=== PATIENT | female | born 1985 | race Caucasian/White ===

== ENCOUNTER 2017-06-22 08:37 | Emergency (ER) | payer BC ==
[~2017-06-22] VITALS: Ht 162.6 cm; Wt 60.3 kg
[2017-06-22] MEDS ORDERED: KETOROLAC TROMETHAMINE 30 MG INJ IM ONE (09:45)
[2017-06-22] MEDS ORDERED: KETOROLAC TROMETHAMINE 30 MG INJ ONE (09:58)
--- NOTE | 2017-06-22 10:04 | NUR ---
Patient discharged to home in stable conditon. Written and verbal after care instructions given. Patient verbalizes understanding of instructions.
== END 2017-06-22 10:06 | disposition home or self-care (01) ==
LOC: ER 08:37
DX: S13.4XXA Sprain of ligaments of cervical spine, initial encounter (principal); S09.90XA Unspecified injury of head, initial encounter; V89.2XXA Person injured in unspecified motor-vehicle accident, traffic, initial encounter; Y92.410 Unspecified street and highway as the place of occurrence of the external cause; Y93.89 Activity, other specified; Y99.8 Other external cause status
CPT/HCPCS: 70450; A4663; J1885